=== PATIENT | male | born 1980 | race Caucasian/White ===

== ENCOUNTER 2018-08-06 15:12 | Emergency (ER) | payer BC ==
[~2018-08-06] VITALS: Ht 187.9 cm; Wt 93.9 kg
== END 2018-08-06 18:30 | disposition home or self-care (01) ==
LOC: ED 15:12
DX: S83.91XA Sprain of unspecified site of right knee, initial encounter (principal); S90.31XA Contusion of right foot, initial encounter; W18.09XA Striking against other object with subsequent fall, initial encounter; Y93.89 Activity, other specified; Y92.89 Other specified places as the place of occurrence of the external cause; Y99.8 Other external cause status